=== PATIENT | female | born 1940 | race Two or more races ===

== ENCOUNTER → 2017-06-30 | Outpatient (CLI) | payer OTHER ==
[~2017-06-30] MED LIST: OSTERA TABLET1 EACH PO; POLY119PG PO; SYNTHROID50 MCG PO; ULTRACET PO; VENTOLIN HFA18 GM IH; ZOCOR20 MG PO
== END | disposition home or self-care (01) ==
LOC: RAD 08:32
DX: M25.551 Pain in right hip (principal); M25.552 Pain in left hip; M25.562 Pain in left knee

== ENCOUNTER 2018-11-02 15:10 | Emergency (ER) | payer OTHER ==
[~2018-11-02] VITALS: Ht 157.5 cm; Wt 56.7 kg
[2018-11-02] MEDS ORDERED: COZAAR50 MG (15:38)
== END 2018-11-02 21:46 | disposition home or self-care (01) ==
LOC: ER 15:10
DX: T62.8X1A Toxic effect of other specified noxious substances eaten as food, accidental (unintentional), initial encounter (principal); R10.13 Epigastric pain; E86.0 Dehydration; R11.0 Nausea; Y92.89 Other specified places as the place of occurrence of the external cause